=== PATIENT | female | born 1995 | race Caucasian/White ===

== ENCOUNTER 2020-09-20 18:15 | Emergency (ER) | payer OTHER ==
[~2020-09-20] VITALS: Ht 152.4 cm; Wt 49.9 kg
[~2020-09-20 18:15] MED LIST: BACTRIM DS TAB1 EACH PO; BACTROBAN22 GM TP; IBUPROFEN 400400 M1 PO; MICROGESTIN1 EAC1; SINGULAIR 10 MG10 M1; TRIMETHOPRIM /P10 M1 OP
[2020-09-20] MEDS ORDERED: PROAIR HFA8.5 GM INH (18:23)
[2020-09-20] MEDS ORDERED: ULTRAM 50MG TAB50 MG PO (20:22)
[2020-09-20 20:49] LABS: URINE BILIRUBIN NEGATIVE (Negative); URINE BLOOD 1+ (Negative); URINE CLARITY CLEAR; URINE COLOR YELLOW; URINE GLUCOSE-RANDOM* NEGATIVE (Negative); URINE KETONES 1+ (Negative); URINE LEUKOCYTES-REFLEX NEGATIVE (Negative); URINE NITRITE-REFLEX NEGATIVE (Negative); URINE PROTEIN (DIPSTICK) TRACE (Negative); URINE SPECIFIC GRAVITY >= 1.030 (1.005-1.035)
[2020-09-20 21:03] LABS: CASTS None Seen /LPF (None Seen); CRYSTALS None Seen /LPF (None Seen); SQUAMOUS 4-10 Moderate /LPF (0-3)
[2020-09-20 21:04] LABS: URINE RBC 0-2 Rare /HPF (0-2); URINE WBC-REFLEX 0-5 Rare /HPF (0-5)
[2020-09-20] MEDS ORDERED: MACROBID 100 M100 MG PO (21:09)
[2020-09-20 21:29] VITALS: BP 109/50
== END 2020-09-20 21:25 | disposition home or self-care (01) ==
LOC: ER 18:15
PROVIDERS: Physician Assistant
DX: N39.0 Urinary tract infection, site not specified (principal); R59.0 Localized enlarged lymph nodes; Z88.0 Allergy status to penicillin; Z88.1 Allergy status to other antibiotic agents; Z88.6 Allergy status to analgesic agent; Z90.89 Acquired absence of other organs

== ENCOUNTER → 2020-10-07 | Outpatient (CLI) | payer OTHER ==
[~2020-10-07] MED LIST changes: +MACROBID 100 M100 MG PO; +PROAIR HFA8.5 GM INH; +ULTRAM 50MG TAB50 MG PO
== END ==
LOC: CAT 10:09
DX: R59.0 Localized enlarged lymph nodes (principal); R59.1 Generalized enlarged lymph nodes